=== PATIENT | male | born 2000 | race Caucasian/White ===

== ENCOUNTER 2020-05-17 09:43 | Emergency (ER) | payer BC ==
[~2020-05-17] VITALS: Ht 182.9 cm; Wt 60.0 kg
[2020-05-17 10:01] VITALS: BP 131/83; TEMP 98.2
[2020-05-17] MEDS ORDERED: ZOFRAN ODT4 MG SL (11:04)
[2020-05-17 11:18] VITALS: PULSE 71
[2020-05-18] MEDS ORDERED: COGENTIN 1MG1 MG/TAB PO (14:55)
[2020-05-18] MEDS ORDERED: ATIVAN 1MG T1 MG/TAB PO (14:55)
== END 2020-05-17 11:18 | disposition home or self-care (01) ==
LOC: COL.ER 09:43
DX: F12.288 Cannabis dependence with other cannabis-induced disorder (principal); R11.2 Nausea with vomiting, unspecified
CPT/HCPCS: J1200; J1630

== ENCOUNTER 2020-05-17 20:37 | Emergency (ER) | payer BC ==
[~2020-05-17] VITALS: Ht 182.9 cm; Wt 59.1 kg
[~2020-05-17 20:37] MED LIST: ZOFRAN ODT4 MG SL
[2020-05-17 20:46] VITALS: TEMP 97.6
[2020-05-17 23:31] VITALS: BP 116/78; PULSE 68
[2020-05-18] MEDS ORDERED: COGENTIN 1MG1 MG/TAB PO (14:55)
[2020-05-18] MEDS ORDERED: ATIVAN 1MG T1 MG/TAB PO (14:55)
== END 2020-05-17 23:32 | disposition home or self-care (01) ==
LOC: COL.ER 20:37
DX: G25.71 Drug induced akathisia (principal); T43.4X5A Adverse effect of butyrophenone and thiothixene neuroleptics, initial encounter
CPT/HCPCS: J1200; J2060; J7030

== ENCOUNTER 2020-05-18 13:40 | Emergency (ER) | payer BC ==
[~2020-05-18] VITALS: Ht 182.9 cm; Wt 60.0 kg
[2020-05-18 13:44] VITALS: BP 131/100; TEMP 97.7
[2020-05-18] MEDS ORDERED: COGENTIN 1MG1 MG/TAB PO (14:55)
[2020-05-18] MEDS ORDERED: ATIVAN 1MG T1 MG/TAB PO (14:55)
[2020-05-18 15:00] VITALS: PULSE 98
== END 2020-05-18 15:10 | disposition home or self-care (01) ==
LOC: COL.ER 13:40
DX: G25.71 Drug induced akathisia (principal); T43.4X5A Adverse effect of butyrophenone and thiothixene neuroleptics, initial encounter
CPT/HCPCS: J2060